=== PATIENT | female | born 1985 ===

== ENCOUNTER 2023-03-16 02:44 | Inpatient (IN) | payer OTHER ==
[~2023-03-16 02:44] MED LIST: Bupivacaine 0.25% 10 ML SDV ONE
[2023-03-16] MEDS ORDERED: Lidocaine 1% 50 ML MDV INJECT PRN (03:32)
[2023-03-16] MEDS ORDERED: Ondansetron 4 MG/2 ML SDV IVPUSH PRN (03:32)
[2023-03-16] MEDS ORDERED: Nalbuphine HCl 10 MG/ 1ML Amp IVPUSH PRN (03:32)
[2023-03-16] MEDS ORDERED: Oxytocin/Lactated Ringers 30 UNIT/500 ML BAG IV SCH ×3 (03:45→11:30)
[2023-03-16 03:49] LABS: BASOPHILS PERCENT AUTO 0.3 % (0.0-1.0); EOSINOPHILS ABSOLUTE AUTO 0.1 K/mm3 (0.0-0.4); EOSINOPHILS PERCENT AUTO 0.7 % (0.0-6.0); HEMOGLOBIN 12.1 gm/dl (12.0-16.0); IMMATURE GRAN ABSOLUTE AUTO 0.04 K/mm3 (0.00-0.05); IMMATURE GRAN PERCENT AUTO 0.4 % (0.0-0.4); LYMPHOCYTES PERCENT AUTO 19.4 % (24.0-44.0); MEAN CORPUSCULAR HEMOGLOBIN 31.2 pg (28.0-32.0); MEAN CORPUSCULAR HGB CONC 34.6 g/dl (32.0-36.0); MEAN CORPUSCULAR VOLUME 90.2 fl (83.0-99.0); MEAN PLATELET VOLUME 12.6 fl (9.4-12.3); MONOCYTES ABSOLUTE AUTO 0.6 K/mm3 (0.0-0.8); MONOCYTES PERCENT AUTO 6.3 % (0.0-8.0); NEUTROPHILS ABSOLUTE AUTO 7.4 K/mm3 (1.8-7.7); NEUTROPHILS PERCENT AUTO 72.9 % (41.0-71.0); PLATELET COUNT,PLT 142 K/mm3 (150-400); RED BLOOD CELL COUNT 3.88 M/mm3 (4.10-5.30); WHITE BLOOD CELL COUNT,WBC 10.09 K/mm3 (3.9-11.3)
[2023-03-16] MEDS: Lactated Ringers 1,000 ML IV SCH ×2 (04:34→06:30)
[2023-03-16] MEDS ORDERED: fentaNYL 100 MCG/2 ML SDV EPIDUR PRN (06:26)
[2023-03-16] MEDS ORDERED: ePHEDrine 50 MG/ML SDV IVPUSH PRN (06:26)
[2023-03-16] MEDS ORDERED: Bupivacaine/fentaNYL/NS 100 ML Bag EPIDUR PRN (06:26)
[2023-03-16] MEDS ORDERED: diphenhydrAMINE 50 MG/ML SDV IVPUSH PRN (06:26)
[2023-03-16] MEDS ORDERED: Acetaminophen 325 MG Tab PO PRN (11:27)
[2023-03-16] MEDS ORDERED: Witch Hazel Medicated Pads 40/Jar TOP PRN (11:27)
[2023-03-16] MEDS ORDERED: Hydrocortisone Acetate 25 MG Supp RECTAL PRN (11:27)
[2023-03-16] MEDS ORDERED: Ibuprofen 600 MG Tab PO PRN (11:27)
[2023-03-16] MEDS ORDERED: Docusate Sodium 100 MG Cap PO PRN (11:27)
[2023-03-16] MEDS ORDERED: Benzocaine/Menthol 20%-0.5% Spray 78 GM Cannister TOP PRN (11:27)
[2023-03-16] MEDS ORDERED: Magnesium Hydroxide 400 MG/5 ML Susp 30 ML Cup PO PRN (21:00)
[2023-03-17] MEDS ORDERED: Prenatal Multivitamin with Calcium/Folic Acid/Iron Tab PO SCH (09:00)
== END 2023-03-17 13:02 | disposition home or self-care (01) | DRG 805 ==
LOC: JD.OBCHECK 02:44 → JD.OB 02:47 → JD.OBCHECK 03:33 → JD.OB 03:53 → OBSVTOIN 10:34 → JD.OB 10:35
PROVIDERS: ADMIT Obstetrics & Gynecology; ATTEND Obstetrics & Gynecology
PROC: 10D17Z9 Manual Extraction of Products of Conception, Retained, Via Natural or Artificial Opening (ICD-10-PCS; principal; 2023-03-16)
PROC: 10D07Z6 Extraction of Products of Conception, Vacuum, Via Natural or Artificial Opening (ICD-10-PCS; 2023-03-16)
PROC: 0KQM0ZZ Repair Perineum Muscle, Open Approach (ICD-10-PCS; 2023-03-16)
PROC: 3E0R3BZ Introduction of Anesthetic Agent into Spinal Canal, Percutaneous Approach (ICD-10-PCS; 2023-03-16)
PROC: 00HU33Z Insertion of Infusion Device into Spinal Canal, Percutaneous Approach (ICD-10-PCS; 2023-03-16)
DX: O42.02 Full-term premature rupture of membranes, onset of labor within 24 hours of rupture (principal); O45.93 Premature separation of placenta, unspecified, third trimester; Z37.0 Single live birth; O72.2 Delayed and secondary postpartum hemorrhage; O76 Abnormality in fetal heart rate and rhythm complicating labor and delivery; Z3A.39 39 weeks gestation of pregnancy; Z98.890 Other specified postprocedural states; O70.1 Second degree perineal laceration during delivery
CPT/HCPCS: 36415; 51701; 59025; 59409; 85025; 86592; 86850; 86900; 86901; C1758; J3010; J3490; J7120; J7999